=== PATIENT | male | born 1955 | race Hispanic/Latino ===

== ENCOUNTER 2016-12-13 15:16 | Outpatient (CLI) | payer BC ==
[2016-12-13 16:45] LABS: Blood Urea Nitrogen 13 mg/dL (9-20)
[2016-12-13] MEDS ORDERED: NACL ONE (16:56)
--- NOTE | 2016-12-13 18:15 | Cat Scan Report ---
FINAL REPORT EXAM: CT ABDOMEN PELVIS W CON HISTORY: RLQ TENDERNESS TECHNIQUE: CT abdomen and pelvis with oral and intravenous contrast PRIORS: None. FINDINGS: No acute abnormality identified in the lung bases. No focal abnormality identified within the liver parenchyma. There several tiny radiodense foci within the lumen of the gallbladder may reflect few small gallstones or sludge. The spleen demonstrates normal size and attenuation. No pancreatic abnormalities seen. The kidneys demonstrate symmetric contrast enhancement. Adrenal glands are unremarkable. No evidence of hydronephrosis. Abdominal aorta is normal in caliber. No pathologically enlarged lymph nodes are identified. No signs of free fluid or free air No evidence of small bowel dilatation. The appendix is identified and is normal in size no adjacent inflammatory change seen. No pericolonic inflammatory changes are identified. Urinary bladder is unremarkable. IMPRESSION: Small stones or sludge within the gallbladder Otherwise negative study.
== END 2016-12-13 15:17 | disposition home or self-care (01) ==
LOC: CT 15:16
PROVIDERS: ATTEND Internal Medicine Endocrinology, Diabetes & Metabolism
DX: R10.813 Right lower quadrant abdominal tenderness (principal)
CPT/HCPCS: 36415; 74177; 82565; 84520; Q9967

== ENCOUNTER 2017-02-21 10:59 | Outpatient (CLI) | payer BC ==
--- NOTE | 2017-02-21 18:49 | Magnetic Resonance Report ---
MR scan of the cranium was performed without contrast. Pulse sequences included: 1. T1 weighted sagittal and axial images without contrast 2. T2 weighted axial and coronal images 3. FLAIR axial images 4. Diffusion-weighted axial images 5. Apparent diffusion coefficient images Views of the posterior fossa showed a normal craniocervical junction. Cerebellar pontine angles were normal with normal seventh-eighth nerve complexes. Brainstem was normal. The cerebellum showed an area of increased signal on DWI images in the left neocerebellum adjacent to the fourth ventricle with some extension posteriorly. No abnormalities were seen to correlate with this lesion on other sequences. The ventricular system showed no dilatation or distortion. Images of the hemispheres showed a small cyst in the right external capsule and another in the left frontal region. There were small areas of increased signal in the left and right thalamic regions, consistent with old infarcts. Occasional abnormal lesion were seen in the periventricular white matter. Sinuses, flow voids in the tribe of [place], orbits, pituitary and basal ganglia were normal. Impression: Abnormal MR scan of the cranium without contrast 1. Abnormal area of increased signal in the left cerebellum on DWI images most consistent with an early infarct -- small vessel 2. multiple small infarcts in the thalamus and cortical white matter this study was compared the patient's earlier studies done elsewhere. The cerebellar lesion was not seen on earlier studies and thus most likely represents a new small vessel infarct.
== END 2017-02-21 11:00 | disposition home or self-care (01) ==
LOC: SPVIMAG 10:59
PROVIDERS: ATTEND Specialist
DX: I63.9 Cerebral infarction, unspecified (principal); G93.0 Cerebral cysts; R93.8 Abnormal findings on diagnostic imaging of other specified body structures
CPT/HCPCS: 70551

== ENCOUNTER 2020-11-16 06:36 | Day surgery (SDC) | payer BC ==
[2020-11-16] MEDS ORDERED: LIDOCAINE MPF (2%) 20 MG/1 ML VIAL 5 ML ONE (07:28)
[2020-11-16] MEDS ORDERED: propofoL 200 MG/20 ML VIAL IV ONE ×2 (07:29)
[2020-11-16] MEDS ORDERED: SODIUM CHLORIDE 0.9% 1000 ML 1,000 ML IV SCH (07:30)
[2020-11-16 07:48] LABS: Basophils % (Auto) 0.4 % (0.0-1.8); Eosinophils # (Auto) 0.1 K/mm3 (0.0-0.4); Eosinophils % (Auto) 1.6 % (0.0-4.3); Hemoglobin 12.5 gm/dl (11.8-15.2); Lymphocytes # (Auto) 2.2 K/mm3 (1.2-5.4); Lymphocytes % (Auto) 28.5 % (13.4-35.0); Mean Corpuscular HGB Conc 36 % (32-34); Mean Corpuscular Volume 85 fl (84-94); Monocytes # (Auto) 0.7 K/mm3 (0.0-0.8); Monocytes % (Auto) 9.1 % (0.0-7.3); Platelet Count 253 K/mm3 (140-440); Red Cell Distribution Width 13.5 % (13.2-15.2)
[2020-11-16 07:55] LABS: INR 1.25 (0.87-1.13); Partial Thromboplastin Time 25.5 Sec. (24.2-36.6)
[2020-11-16 07:56] LABS: BUN/Creatinine Ratio 19; Blood Urea Nitrogen 21 mg/dL (9-20); Calcium 9.1 mg/dL (8.4-10.2); Hemolysis Index 9
[2020-11-16] MEDS ORDERED: BENZOCAINE 20% TOP SPRAY 0.5 ML UNIT DOSE MM NR (08:00)
--- NOTE | 2020-11-16 08:02 | Anesthesia Consultation ---
Anesthesia Consult and Med Hx Date of service: 11/16/20 - Airway Anesthetic Teeth Evaluation: Dentures (Upper full plate, remaining teeth in poor condition.) ROM Head & Neck: Adequate Mental/Hyoid Distance: Adequate Mallampati Class: Class II Intubation Access Assessment: Probably Good - Pulmonary Exam CTA: Yes - Pre-Operative Health Status ASA Pre-Surgery Classification: ASA3 Proposed Anesthetic Plan: MAC - Pulmonary Hx Smoking: No (Quit 34 years ago) Hx Asthma: No Hx Respiratory Symptoms: No SOB: No COPD: No Hx Sleep Apnea: No - Cardiovascular System Hx Hypertension: Yes Hx Coronary Artery Disease: No Hx Heart Attack/AMI: No Hx Angina: No Hx Cardia Arrhythmia: Yes (Atrial fibrillation) Hx Pacemaker: No - Central Nervous System Hx Neuromuscular Disorder: Yes (Arms, legs, 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
--- NOTE | 2020-11-16 08:14 | Anesthesia Day of Surgery ---
Anesthesia Day of Surgery - Day of Surgery Patient Examined: Yes Patient H&P Reviewed: Yes Patient is NPO: Yes Beta Blockers: No Cardiac Clearance: No Pulmonary Clearance: No Tobias's Test: N/A
[2020-11-16 11:01] VITALS: BP 122/59
--- NOTE | 2020-11-16 11:27 | Short Stay Summary ---
Short Stay Documentation Date of service: 11/16/20 - History H&P: obtained from office - Allergies and Medications Current Medications: Allergies No Known Allergies Allergy (Verified 11/16/20 07:22) Home Medications Medication Instructions Recorded Confirmed Last Taken Type Apixaban [Eliquis] 5 mg PO BID 11/16/20 11/16/20 11/15/20 History Aspirin [Adult Aspirin] 81 mg PO DAILY 11/16/20 11/16/20 11/15/20 History FLUoxetine HCL [PROzac] 40 mg PO QDAY 11/16/20 11/16/20 11/15/20 History Insulin Aspart Prot/Insuln Asp 40 unit SQ TID 11/16/20 11/16/20 11/15/20 History [Novolog Mix 70-30 Flexpen] Telmisartan Tab [Micardis Tab] 40 mg PO QDAY 11/16/20 11/16/20 11/15/20 History amLODIPine [Norvasc] 10 mg PO DAILY 11/16/20 11/16/20 11/15/20 History Active Medications Benzocaine (Benzocaine 20% [place] 0.5 Ml Unit Dose) 3 spray MM PREOP NR Stop: 11/16/20 20:00 Last Admin: 11/16/20 09:10 Dose: 3 spray Documented by: Sodium Chloride (Nacl 0.9% 1000 Ml) 1,000 mls @ 42 mls/hr IV DIRECT STAR Last Admin: 11/16/20 08:28 Dose: 42 mls/hr Documented by: - Brief post op/procedure progress note Date of procedure: 11/16/20 Pre-op diagnosis: Atrial Fibrillation, Presence of Watchman left atrial appendage closure dev Post-op diagnosis: same Procedure: SURAJ-see dictated Op Report Anesthesia: local Estimated blood loss: none Condition: stable - Disposition Condition at discharge: Good Disposition: DC-01 TO HOME OR SELFCARE - Discharge Diagnoses (1) Atrial fibrillation Status: Chronic Short Stay Discharge Plan Activity: advance as tolerated Diet: low fat, low cholesterol, low salt Wound: per your surgeon's advice Follow up with: CHAN MONTENEGRO [Other] - 7 Days JARED PERES MD [Staff Physician] - 7 Days (f/u with Dr Peres in our [place] office on 12/20/2020 at 3:30pm.) Forms: SURAJ Discharge Form
--- NOTE | 2020-11-16 17:21 | Post Anesthesia Evaluation ---
- Post Anesthesia Evaluation Patient Participated: Yes Airway Patent: Yes Stable Respiratory Function: Yes Nausea/Vomiting: No Temp > 96.8F: Yes Pain Manageable: Yes Adequeate Hydration: Yes Anesthesia Complications: No Block Receding Appropriately: Not Applicable Patient on Ventilator: No
== END 2020-11-16 11:45 | disposition home or self-care (01) ==
LOC: CATHLABREC 06:36 → OR 06:36 → CATHLABREC 11:45
PROVIDERS: ATTEND Internal Medicine
DX: I48.91 Unspecified atrial fibrillation (principal); Z20.822 Contact with and (suspected) exposure to COVID-19; I34.0 Nonrheumatic mitral (valve) insufficiency; I42.9 Cardiomyopathy, unspecified; E78.00 Pure hypercholesterolemia, unspecified; I10 Essential (primary) hypertension; E11.9 Type 2 diabetes mellitus without complications; F41.9 Anxiety disorder, unspecified; Z72.89 Other problems related to lifestyle; Z86.73 Personal history of transient ischemic attack (TIA), and cerebral infarction without residual deficits; Z79.899 Other long term (current) drug therapy; Z79.82 Long term (current) use of aspirin; Z87.891 Personal history of nicotine dependence; Z98.890 Other specified postprocedural states
CPT/HCPCS: 36415; 80048; 85025; 85610; 85730; 93312; 93320; 93325; J2704; J7030; U0003